=== PATIENT | male | born 1945 | race Caucasian/White ===

== ENCOUNTER 2017-02-02 23:50 | Emergency (ER) | payer MEDICARE, BC, OTHER ==
[~2017-02-02] VITALS: Ht 177.8 cm; Wt 104.5 kg
[~2017-02-02 23:50] MED LIST: ALTACE 5MG5 MG PO; ASPIRIN 81M81 MG/TA2 PO; COLACE 100100 MG/CAP PO; FISH OIL 1000MG1 CAP PO; MULTI VITAMINS1 TAB PO; TENORMIN 2525 MG/TAB PO; ZETIA 10MG TAB10 MG PO; ZOCOR 40MG40 MG PO
[2017-02-02 23:55] VITALS: TEMP 97.5
[2017-02-03 00:16] LABS: BASO % 0.5 % (0.0-2.0); EOS # 0.1 (0.0-0.7); EOS % 2.3 % (0-4.0); GRAN # 2.8 (1.4-6.5); GRAN % 47.5 % (42.2-75.2); HEMATOCRIT 40.2 % (42.0-52.0); HEMOGLOBIN 13.9 g/dl (13.5-18.0); LYMPH # 2.3 (1.2-3.4); LYMPH % 37.9 % (20.0-51.0); MEAN CELL VOLUME 92 fl (80.0-100.0); MEAN CORPUSCULAR HEMOGLOBIN 32 pg (27.0-31.0); MEAN CORPUSCULAR HGB CONC 35 g/dl (33.0-37.0); MEAN PLATELET VOLUME 9.8 fl (7.4-10.4); MONO # 0.7 (0.1-0.6); MONO % 11.5 % (1.7-9.3); PLATELET COUNT 214 K/mm3 (130-400); RED BLOOD COUNT 4.38 M/mm3 (4.20-5.60); REDCELL DISTRIBUTION WIDTH-CV 12.6 % (11.5-14.5)
[2017-02-03 00:25] LABS: ADJUSTED CALCIUM 8.7 mg/dL (8.4-10.2); ALANINE AMINOTRANSFERASE 31 U/L (21-72); ALBUMIN 4.2 gm/dL (3.5-5.0); ALKALINE PHOSPHATASE 61 U/L (50-136); ANION GAP 9 mmol/L (7-16); BILIRUBIN,TOTAL 0.7 mg/dL (0.0-1.0); BLOOD UREA NITROGEN 14 mg/dL (9-20); CALCIUM 8.9 mg/dL (8.4-10.2); CARBON DIOXIDE 26 mmol/L (22-30); CHLORIDE 102 mmol/L (98-107); GLUCOSE 103 mg/dL (74-106); LIPASE 197 U/L (23-300); POTASSIUM 4.2 mmol/L (3.4-5.0); SODIUM 137 mmol/L (137-145)
[2017-02-03 00:36] LABS: B-TYPE NATRIURETIC PEPTIDE 56 pg/mL (0-125)
[2017-02-03 00:45] LABS: TROPONIN-I < 0.012 ng/mL (0.000-0.034)
[2017-02-03] MEDS ORDERED: ROBAXIN 75750 MG/TAB PO (00:55)
[2017-02-03] MEDS ORDERED: ZETIA 10MG TAB10 MG PO (00:57)
[2017-02-03] MEDS ORDERED: OMEGA-3 1000 MG1 CAP PO (00:57)
[2017-02-03] MEDS ORDERED: TENORMIN 2525 MG/TAB PO (00:57)
[2017-02-03] MEDS ORDERED: ZOCOR 40MG40 MG PO (00:57)
[2017-02-03] MEDS ORDERED: MULTI VITAMINS1 TAB PO (00:58)
[2017-02-03] MEDS ORDERED: COZAAR100 MG PO (00:58)
[2017-02-03] MEDS ORDERED: ASPIRIN 81M81 MG/TA2 PO (00:58)
[2017-02-03 02:36] VITALS: BP 117/78; PULSE 54
== END 2017-02-03 02:37 | disposition home or self-care (01) ==
LOC: COL.ER 23:50
PROVIDERS: Emergency Medicine
DX: R07.9 Chest pain, unspecified (principal); I10 Essential (primary) hypertension; Z95.1 Presence of aortocoronary bypass graft; Z95.5 Presence of coronary angioplasty implant and graft; Z87.891 Personal history of nicotine dependence; Z79.82 Long term (current) use of aspirin

== ENCOUNTER → 2022-11-19 | Outpatient (CLI) | payer MEDICARE, OTHER ==
[~2022-11-19] MED LIST changes: +COZAAR100 MG PO; +OMEGA-3 1000 MG1 CAP PO; +ROBAXIN 75750 MG/TAB PO
== END ==
LOC: COL.RAD 10:47
DX: J34.9 Unspecified disorder of nose and nasal sinuses (principal)

== ENCOUNTER 2023-05-03 12:20 | Day surgery (SDC) | payer MEDICARE, OTHER ==
[2023-05-03] VITALS (7 sets, daily range): BP systolic 111–134; BP diastolic 56–70; PULSE 60–68; TEMP 97.5–97.7
[~2023-05-03] VITALS: Ht 177.8 cm; Wt 95.4 kg
[2023-05-03] MEDS ORDERED: PROTONIX 40MG T40 MG PO (13:07)
[2023-05-03] MEDS ORDERED: TENORMIN 2525 MG/TAB PO (13:09)
[2023-05-03] MEDS ORDERED: CHLOROTHIAZIDE PO (13:11)
[2023-05-03] MEDS ORDERED: IBUDONE5 PO (13:13)
[2023-05-03] MEDS ORDERED: FENTANYL 12MCG TD (13:17)
--- NOTE | 2023-05-03 18:08 | NUR ---
[id number]: PT TO RECOVERY BAY 2 FROM PACU S/P TURBT A&O, PLACED ON MONITOR, VSS ON RA RECEIVED REPORT AND ASSUMED CARE OF PT FROM CHERI RITTER SPOUSE/DTR AT BEDSIDE PROVIDED FOOD/FLUIDS, TOLERATING WELL SCANT BLOODY DRAINAGE AND MODERATE CLOT FROM URETHRA NOTED UPON ARRIVAL. INITIALLY PT UNABLE TO VOID, BUT THEN AMBULATED TWICE TO BR AND DISLODGED A CLOT FROM [facility]THRA AND ABLE TO EMPTY BLADDER CONFIRMED WITH BLADDER SCAN. PT ENCOURAGED TO HYDRATE WELL AND S/S TO RTC REVIEWED INCLUDING INABLILITY TO VOID - PT/FAMILY VERBALIZED UNDERSTANDING PT HAS REMAINED A&O, NAD, VSS ON RA, TOLERATING PO, IS WITHOUT SIGNIFICANT COMPLAINT, WITH STEADY GAIT WITH WALKER THRU OUT STAY IV D/C'D. D/C INSTRUCTIONS, ANY FOLLOW UP REVIEWED AND HANDED TO PT. ALL QUESTIONS AND CONCERNS ADDRESSED TO PT SATISFACTION. TAKEN TO EXIT VIA W/C WITH ALL BELONGINGS AND PAPERWORK IN HAND, ASSISTED INTO PASSENGER SEAT OF POV. DTR TO DRIVE HOME.
== END 2023-05-03 17:30 | disposition home or self-care (01) ==
LOC: SDCO 12:20
DX: C79.11 Secondary malignant neoplasm of bladder (principal); C80.1 Malignant (primary) neoplasm, unspecified; I10 Essential (primary) hypertension; E66.9 Obesity, unspecified; Z68.29 Body mass index [BMI] 29.0-29.9, adult; Z95.1 Presence of aortocoronary bypass graft; Z95.5 Presence of coronary angioplasty implant and graft; Z79.899 Other long term (current) drug therapy
CPT/HCPCS: J0690; J1100; J2371; J2405; J2704; J3010; J7120

== ENCOUNTER 2023-05-07 04:07 | Emergency (ER) | payer MEDICARE, OTHER ==
[~2023-05-07] VITALS: Ht 177.8 cm; Wt 95.5 kg
[~2023-05-07 04:07] MED LIST changes: +CHLOROTHIAZIDE PO; +FENTANYL 12MCG TD; +IBUDONE5 PO; +PROTONIX 40MG T40 MG PO
[2023-05-07 06:32] VITALS: BP 159/87; PULSE 71; TEMP 98.1
[2023-05-07] MEDS ORDERED: MS CONTIN 330 MG/TAB PO (06:37)
[2023-05-08] MEDS ORDERED: ZOFRAN ODT4 MG PO (19:43)
== END 2023-05-07 06:55 | disposition home or self-care (01) ==
LOC: COL.ER 04:07
DX: C41.9 Malignant neoplasm of bone and articular cartilage, unspecified (principal)

== ENCOUNTER 2023-05-08 17:23 | Emergency (ER) | payer MEDICARE, OTHER ==
[~2023-05-08] VITALS: Ht 177.8 cm; Wt 95.5 kg
[~2023-05-08 17:23] MED LIST changes: +MS CONTIN 330 MG/TAB PO
[2023-05-08 17:49] LABS: BASO % 0.3 % (0.0-2.0); EOS # 0.1 K/mm3 (0.0-0.7); EOS % 0.7 % (0.0-4.0); GRAN # 7.9 K/mm3 (1.4-6.5); GRAN % 73.6 % (42.2-75.2); HEMATOCRIT 41.1 % (42.0-52.0); HEMOGLOBIN 13.9 g/dl (13.5-18.0); LYMPH # 1.5 K/mm3 (1.2-3.4); LYMPH % 13.9 % (20.0-51.0); MEAN CELL VOLUME 93 fl (80.0-100.0); MEAN CORPUSCULAR HEMOGLOBIN 31 pg (27-31); MEAN CORPUSCULAR HGB CONC 34 g/dl (33.0-37.0); MEAN PLATELET VOLUME 10.1 fl (7.4-10.4); MONO # 1.2 K/mm3 (0.1-0.6); MONO % 10.9 % (1.7-9.3); PLATELET COUNT 184 K/mm3 (130-400); RED BLOOD COUNT 4.43 M/mm3 (4.20-5.60)
[2023-05-08 18:03] LABS: ALBUMIN 3.6 gm/dL (3.4-4.8); BILIRUBIN,TOTAL 1.4 mg/dL (0.2-1.2); C-REACTIVE PROTEIN 11.97 mg/dL (0.00-0.50); CALCIUM 9.4 mg/dL (8.4-10.2); CREATININE, serum 0.85 mg/dL (0.72-1.25); POTASSIUM 4.4 mmol/L (3.5-4.5)
[2023-05-08] MEDS ORDERED: ZOFRAN ODT4 MG PO (19:43)
[2023-05-08 20:02] VITALS: BP 124/61; PULSE 80
--- NOTE | 2023-05-09 11:36 | NUR ---
Scarrer received consult from the ED for patient that visited on 05/07/23 and 05/08/23. Patient returned home and it was determined he may need some in home supports. JUSTIN contacted patient who advised he was doing okay but is having some difficulty getting around. Patient stated he came in to the ED twice for uncontrolled pain and also advised he had a recent cancer diagnosis. Patient has a cane and walker available at home. Patient lives with his , Yael (ph#[phone]) and their daughter, Mp. Patient also has a daughter, Kath who lives in [place]. Patient did not want to set up Home Health at this time as he has a couple follows ups this week and wants to wait to find out more about his plan of care. Patient has a follow up with Oncology on Tuesday and a follow up with Urology on . Patient sees Dr. Bull for primary care and would like to be contacted by [facility] to set up a follow up with him. JUSTIN contacted Cherry at [facility] and provided the above update. Cherry will have their office reach out to patient to schedule a follow up and offer support.
== END 2023-05-08 20:02 | disposition home or self-care (01) ==
LOC: COL.ER 17:23
PROVIDERS: Emergency Medicine
DX: C79.51 Secondary malignant neoplasm of bone (principal); R11.2 Nausea with vomiting, unspecified; Z87.891 Personal history of nicotine dependence
CPT/HCPCS: J2405; J2550; J7030

== ENCOUNTER 2023-07-14 15:47 | Inpatient (IN) | payer MEDICARE, OTHER ==
[~2023-07-14] VITALS: Ht 177.8 cm; Wt 87.4 kg
[~2023-07-14 15:47] MED LIST changes: +ASPIRIN E.C. 8181 MG PO; +FENTANYL 25 MCG TD; +HCTZ12.5TAB PO; +MIRALAX PA17 GM/Dose PO; +NEURONTIN300 MG/CAP PO; +NORCO 325 MG-51 TAB PO; +STOOL SOFTENER100 M2 PO; +ZOFRAN 4MG T4 MG/TAB PO; +ZOFRAN ODT4 MG PO
[2023-07-14] MEDS ORDERED: NS 1,000 ML IV ONE ×2 (16:00→18:15)
[2023-07-14 16:15] LABS: HEMATOCRIT 37.2 % (42.0-52.0); HEMOGLOBIN 12.7 g/dl (13.5-18.0); MEAN CELL VOLUME 93 fl (80.0-100.0); MEAN CORPUSCULAR HEMOGLOBIN 32 pg (27-31); MEAN CORPUSCULAR HGB CONC 34 g/dl (33.0-37.0); MEAN PLATELET VOLUME 9.4 fl (7.4-10.4); PLATELET COUNT 163 K/mm3 (130-400); RED BLOOD COUNT 3.99 M/mm3 (4.20-5.60); REDCELL DISTRIBUTION WIDTH-CV 15.7 % (11.5-14.5)
[2023-07-14 16:19] LABS: INR 1.4 (0.8-3.0); PROTHROMBIN TIME 15.4 SECONDS (9.7-12.8)
[2023-07-14 16:29] LABS: ALBUMIN 2.7 gm/dL (3.4-4.8); C-REACTIVE PROTEIN 22.38 mg/dL (0.00-0.50); CALCIUM 8.7 mg/dL (8.4-10.2); CREATININE, serum 0.74 mg/dL (0.72-1.25); POTASSIUM 3.8 mmol/L (3.5-4.5); TOTAL PROTEIN 6.4 gm/dL (6.2-8.1)
[2023-07-14 16:35] LABS: TROPONIN-I 0.023 ng/mL (0.00-0.033)
[2023-07-14] MEDS ORDERED: Acetaminophen 500 MG TAB PO ONE (17:00)
[2023-07-14 17:04] LABS: COLLECTION METHOD CLEAN CATCH
[2023-07-14 17:06] LABS: BAND 4 % (0-10); LYMPHOCYTE 4 % (20.0-51.0); NEUTROPHILS 90 % (42.0-75.2); PLATELET ESTIMATE NORMAL (NORMAL)
[2023-07-14 17:13] LABS: URINE APPEARANCE Clear (CLEAR/HAZY); URINE BLOOD Negative (NEGATIVE); URINE COLOR Yellow (YELLOW); URINE GLUCOSE 1+ (NEGATIVE); URINE KETONE TRACE (NEGATIVE); URINE NITRATE Negative (NEGATIVE); URINE PROTEIN(semi-quant) TRACE (NEGATIVE)
[2023-07-14] MEDS ORDERED: Iohexol 300 - 100 ML VIAL IV ONE (17:18)
[2023-07-14] MEDS ORDERED: NS 100 ML IV SCH (17:18)
[2023-07-14 17:39] LABS: URINE RBC 0-2 /hpf (0-2)
[2023-07-14 17:40] LABS: SQUAMOUS EPITHELIAL 0-2 /hpf (0-10)
[2023-07-14 17:41] LABS: MUCOUS Present (NOT PRESENT); URINE BACTERIA None Seen /hpf (NONE SEEN)
[2023-07-14] MEDS ORDERED: methylPREDNISolone Sod Succ 125 MG/2 ML VIAL IV ONE (18:15)
[2023-07-14 20:50] VITALS: BP 117/73; PULSE 109; TEMP 98.2
[2023-07-14 21:00] VITALS: BP_SYST 117
[2023-07-14] MEDS ORDERED: Ondansetron 4 MG/2 ML VIAL IV PRN (21:30)
[2023-07-14] MEDS ORDERED: Docusate Sodium 100 MG CAP PO PRN (21:30)
[2023-07-14] MEDS ORDERED: Acetaminophen 325 MG TAB PO PRN (21:30)
[2023-07-14] MEDS ORDERED: Atenolol 25 MG TAB PO SCH (22:04)
[2023-07-14] MEDS ORDERED: Gabapentin 300 MG CAP PO SCH (22:05)
[2023-07-14] MEDS ORDERED: Simvastatin 40 MG **** subs to Atorvastatin 20 MG PO SCH (22:05)
--- NOTE | 2023-07-14 23:06 | NUR ---
patient arrived from ED at 2039, alert and oriented x4, transfer x1 assist with steady gait and some weakness to bed. pt denies chest pain and shortness of breath at this time. IV in LW and RAC are patent, sites are clean dry and intact. slight blancheable redness on heels, no other remarkable skin findings, mild nonpitting edema in BLE, pt wearing own compression socks. pt oriented to room. pt has no further needs, questions, or concerns. fall precautions in place, call light within reach. will continue to monitor.
[2023-07-14] MEDS ORDERED: guaiFENesin ER 600 MG **** subs to guaiFENesin 200 MG PO SCH (23:17)
[2023-07-14] MEDS ORDERED: Albuterol 0.083% Neb Soln 2.5 MG/3 ML UD IH PRN (23:30)
[2023-07-15] VITALS (13 sets, daily range): BP systolic 93–129; BP diastolic 57–75; PULSE 81–112; TEMP 97.8–98.4
[2023-07-15] MEDS ORDERED: guaiFENesin 200 MG TAB PO SCH
[2023-07-15 06:37] LABS: CALCIUM 8.4 mg/dL (8.4-10.2); CREATININE, serum 0.64 mg/dL (0.72-1.25); POTASSIUM 3.7 mmol/L (3.5-4.5)
[2023-07-15] MEDS ORDERED: Albuterol 0.083% Neb Soln 2.5 MG/3 ML UD IH SCH (07:00)
[2023-07-15] MEDS ORDERED: Polyethylene Glycol 3350 17 GM PDS PO SCH (09:00)
[2023-07-15] MEDS ORDERED: Losartan 50 MG TAB PO SCH (09:00)
[2023-07-15] MEDS ORDERED: Docusate Sodium 100 MG CAP PO SCH (09:00)
--- NOTE | 2023-07-15 09:00 | NUR ---
PT RESTING IN BED UPON ENTERING, DAUGHTER AT BEDSIDE. PT DENIES PAIN AT THIS TIME BUT DAUGHTER STATES THAT DUE TO BONE CANCER THEY LIKE TO "STAY ON TOP OF THE PAIN" AND IS REQUESTING PRN PAIN MED. PT AGREEING ALTHOUGH DENYING PAIN. PT REPORTS A BOWEL MOVEMENT 07/14 AND DAUGHTER STATING THAT PT SHOULD NOT TAKE MIRALAX, PT REFUSING MIRALAX AND TAKING SCHEDULED COLACE. PT HAS A STAGE 2 PRESSURE INJURY TO COCCYX. PTS CLEANED, BARRIER CREAM AND MEPILEX APPLIED. ZOSYN STARTED IN LEFT WRIST AT 25 MLS/HR. RIGHT AC FLUSHES WELL. PT ON 1.5L NASAL CANNULA AND TOLERATING WELL, DENIES SHORTNESS OF BREATH AT THIS TIME. AFTER MEDS GIVEN PT BECOMES TEARFUL STATING "ILL NEVER SEE MY GRANDKIDS AGAIN". PT REASSURED BY THIS NURSE AND DAUGHTER AT BEDSIDE. PT DENIES NEEDS AT THIS TIME. BED IN LOWEST POSITION, CALL LIGHT IN REACH, BED ALARM ON
--- NOTE | 2023-07-15 10:33 | NUR ---
Initial visit; Patient and his daughter were very nice people who both appreciated Ob Gyn offering her time to listen to patient's story and offering encouragement, kindness and prayer. Ob Gyn wished them both a good [place]. They did the same.
--- NOTE | 2023-07-15 12:34 | NUR ---
Venue Manager met with patient to discuss discharge planning. Patient lives in [place] with his , Phylicia (ph#[phone]) and sees Dr. Galvez at [facility] for primary care. Patient obtains medications from [facility] with no difficulties. Patient has a cane and walker at home if he needs one. Patient is normally independent with ADLS and was driving up until recently. Patient's also does not drive so they rely on their daughters for assistance getting to appointments. Patient stated his and daughters are DPOA-HC. Patient plans to return home at time of discharge. Discharge Plan; Home
--- NOTE | 2023-07-15 14:30 | NUR ---
PT CALLED THIS NURSE INTO ROOM AND REPORTS DISCOMFORT ON HIS PENIS. UPON ASSESSING THIS NURSE NOTED A WHITE PATCHY AREA ON HEAD OF PTS PENIS. PT STATES "I RUBBED IT ON THE TOILET SEAT SCOOTING AROUND" WHEN ASKING WHEN PT STATE ABOUT A WEEK AGO AND THAT HES BENE USING A MEDICATION THAT STARTS WITH AN A. THIS NURSE CHECKED PTS MED CLAIM HISTORY AND SAW THAT PT WAS PRESCRIBED ARISTOCORT FOR THIS ISSUED. DR MOORE NOTIFIED AND MED WAS ADDED TO THE MED REC PER HER REQUEST TO "LOOK AT IT". NO FURHTER ORDERS AT THIS TIME
[2023-07-15] MEDS ORDERED: TRIAMC 0.1 454 TOP (14:36)
--- NOTE | 2023-07-15 15:05 | NUR ---
UPON ENTERING PT REPORTS "CHEST TIGHTNESS FOR ABOUT AN HOUR", DESCRIBING IT "SOMETHING SITTING ON MY CHEST". PT STATES THAT THIS STARTED AFTER EATING. VITALS TAKEN AND DR MOORE CALLED. EKG AND TROPONIN ORDERED. PT ON 1.5L NASAL CANNULA AND DENIES BEING SHORT OF BREATH AT THIS TIME.
--- NOTE | 2023-07-15 17:31 | NUR ---
DR MOORE INFORMED BY THIS RN THAT PATIENT TROPONIN IS CRITICAL AT 0.051, YESTERDAY IT WAS 0.023. NO ORDERS GIVEN AT THIS TIME.
--- NOTE | 2023-07-15 17:37 | NUR ---
DR MOORE CALLED AND ASKED ABOUT PTS PLAN DUE TO CRITICAL HIGH TROPONIN. PROVIDER STATES "PT IS CURRENTLY NOT HAVING CHEST PAIN. I WILL ORDER A REPEAT TROPONIN AND IF ITS HIGH AGAIN I WILL ORDERA HEPARIN DRIP". THIS NURSE VERBALIZED UNDERSTANDING AND A REPEAT TROPONIN IS SCHEDULED FOR 1900.
[2023-07-15] MEDS ORDERED: Aspirin 325 MG TAB PO ONE (17:45)
[2023-07-15] MEDS ORDERED: Heparin 5,000 UNITS/ML 1 ML VIAL IV ONE (20:15)
[2023-07-15] MEDS ORDERED: LR 500 ML IV ONE (20:15)
[2023-07-15] MEDS ORDERED: Heparin/D5W 250 ML IV SCH (20:15)
[2023-07-15] MEDS ORDERED: Heparin 5,000 UNITS/ML 1 ML VIAL IV PRN (20:15)
[2023-07-15] MEDS ORDERED: Atorvastatin 20 MG TAB PO SCH (21:00)
[2023-07-15] MEDS ORDERED: Ezetimibe 10 MG TAB PO SCH (21:00)
[2023-07-15 21:29] LABS: PARTIAL THROMBOPLASTIN TIME 27.1 SECONDS (26.0-37.0)
[2023-07-16] VITALS (13 sets, daily range): BP systolic 92–114; BP diastolic 56–67; PULSE 88–113; TEMP 97.4–98.5
[2023-07-16 04:44] LABS: MEAN CELL VOLUME 90 fl (80.0-100.0); MEAN CORPUSCULAR HGB CONC 35 g/dl (33.0-37.0); MEAN PLATELET VOLUME 9.2 fl (7.4-10.4); PLATELET COUNT 162 K/mm3 (130-400); RED BLOOD COUNT 2.98 M/mm3 (4.20-5.60); REDCELL DISTRIBUTION WIDTH-CV 15.7 % (11.5-14.5)
[2023-07-16 04:53] LABS: HEMATOCRIT 26.8 % (42.0-52.0); MEAN CORPUSCULAR HEMOGLOBIN 32 pg (27-31)
[2023-07-16 04:55] LABS: HEMOGLOBIN 9.4 g/dl (13.5-18.0)
[2023-07-16 05:01] LABS: CREATININE, serum 0.65 mg/dL (0.72-1.25); MAGNESIUM 1.8 mg/dL (1.6-2.6); POTASSIUM 3.6 mmol/L (3.5-4.5)
[2023-07-16 05:10] LABS: TROPONIN-I 0.062 ng/mL (0.00-0.033)
--- NOTE | 2023-07-16 05:15 | NUR ---
ASSESSMENT COMPLETE FOR CLOTHES IRONER. PT DENIED GENERAL PAIN, CHEST PAIN, PALPITATIONS, SOB, N,V,D OR DIZZINESS. PT HAD 2 ELEVATED TROPONINS THIS SHIFT. THE FIRST ELEVATED TROPONIN CALLED THIS SHIFT WAS 0.061. HOSPITALIST CALLED. HEPARIN DRIP ORDERED AND STARTED. THE SECOND ELEVATED TROPONIN CALLED THIS SHIFT WAS 0.062. HOSPITALIST CALLED. NO NEW ORDERS AT THIS TIME. HgB DELTA CHECK CALLED (12.7 DOWN TO 9.4). HOSPITALIST CALLED. NO NEW ORDERS. FALL PRECATIONS IN PLACE. BED ALARM ON. CALL LIGHT WITHIN REACH.
--- NOTE | 2023-07-16 07:50 | NUR ---
CARDIOLOGY CONSULT CALLED TO DR AGUAYO
--- NOTE | 2023-07-16 09:45 | NUR ---
PT RESTING IN BED. ASSESSMENT DONE. PT REPORTS NOT HAVING A BOWEL MOVEMENT SINCE ADMISSION. THIS NURSE NOTIFIED PT ON ON THE MORNING OF 07/15 PT AND DAUGHTER REFUSED MIRALAX SINCE PT HAS A LOOSE BM ON 07/14. PT VERBALIZED UNDERSTANDING AND WAS GIVEN SCHEDULED COLACE AND MIRALAX. PT ON 1L NASAL CANNULA AND DENIES SHORTNESS OF BREATH AT THIS TIME. PT DENIES CHEST PAIN AND HEPARIN DRIP RUNNING AT 9MLS/HR PER ORDER. PT DOES REPORT CHRONIC HIP PAIN AND GIVNE PRN NORCO. PT HAS A STAGE 2 PRESSURE INJURY TO COCCYX. PT CLEANED, BARRIER CREAM AND MEPILEX APPLIED. PT REPOSITIONED ON RIGHT SIDE. PT DENIES NEEDS AT THIS TIME. BED IN LOWEST POSITION, CALL LIGHT IN REACH, BED ALARM ON
--- NOTE | 2023-07-16 12:03 | NUR ---
PTS HEPXA 0.38 WHICH IS THERAPEUTIC. NO CHANGE TO RATE MADE AT THIS TIME AND HEPARIN IS RUNNING AT 9 MLS/HR. PT DENIES NEEDS AT THIS TIME. HEPXA RECHECK WILL BE ORDERED FOR 0. PT AND FAMILY UPDATED ON THIS AND ALL VERBALIZED UNDERSTANDING. PTS FAMILY ASKING ABOUT WHEN THE LAST TIME PT GOT PRN NORCO AND UPDATED BY THIS NURSE. PTS FAMILY WANTING PRN EVERY 6 HOURS AND THIS NURSE EDUCATING WHEN PT CAN GET IT NEXT AND THAT PT OUR FAMILY SHOULD CALL SINCE MED ISNT SCHEDULED.
--- NOTE | 2023-07-16 12:11 | NUR ---
Data: Patient accepted Wealth Management Consultant visit during Wealth Management Consultant rounds. Assessment: Patient is grieving the loss of his Son whol earlier this year. Patient's illness is complicating his grief. Plan of Care: Wealth Management Consultant provided supportive listening. Patient's Daughter and Grandson arrived. Wealth Management Consultant provided prayer as the family held hands with one another.
[2023-07-16] MEDS ORDERED: Clopidogrel 75 MG TAB PO SCH (16:55)
--- NOTE | 2023-07-16 17:00 | NUR ---
HEPXA 0.31 WHICH IS THERAPEUTIC, RECHECK DUE IN THE MORNING. HEPARIN RESTARTED AT 9MLS/HR PER ORDER
--- NOTE | 2023-07-16 20:30 | NUR ---
Patient resting in bed. Denies any pain or needs at this time. Assessment complete. IV in left wrist and right AC infusing with no complications. Call light and personal items in reach. Bed in low position and bed alarm on.
[2023-07-17] VITALS (12 sets, daily range): BP systolic 102–120; BP diastolic 59–77; PULSE 85–109; TEMP 97.4–100.8
--- NOTE | 2023-07-17 05:45 | NUR ---
Patient resting in bed. No signs of pain or distress at this time. Call light and personal items in reach. Bed in low position and bed alarm on. Patient had an episode early this morning where he has some mucous he was struggling to get up and was SOB. Sat patient on edge of bed and had him cough and spit out mucous. Patient stated that it helped and he feels better. Oxygen reading in upper 80s, bumped oxygen up to 4L nasal cannula and stating 92%.
[2023-07-17 07:35] LABS: HEMOGLOBIN 10.4 g/dl (13.5-18.0); MEAN CELL VOLUME 90 fl (80.0-100.0); MEAN CORPUSCULAR HEMOGLOBIN 31 pg (27-31); MEAN CORPUSCULAR HGB CONC 34 g/dl (33.0-37.0); MEAN PLATELET VOLUME 9.6 fl (7.4-10.4); PLATELET COUNT 203 K/mm3 (130-400); RED BLOOD COUNT 3.35 M/mm3 (4.20-5.60); REDCELL DISTRIBUTION WIDTH-CV 15.9 % (11.5-14.5)
[2023-07-17 07:37] LABS: HEMATOCRIT 30.3 % (42.0-52.0)
[2023-07-17 07:52] LABS: CALCIUM 8.3 mg/dL (8.4-10.2); CREATININE, serum 0.61 mg/dL (0.72-1.25); MAGNESIUM 1.6 mg/dL (1.6-2.6); POTASSIUM 4.4 mmol/L (3.5-4.5)
--- NOTE | 2023-07-17 09:41 | NUR ---
Patient is resting in bed, at shiftchange pt was raised to 7L sat 90-92%/, right now at the same rate. Telemetry in place, heg gtt at 900unitis/hr. Getting Zosyn per orders. States pain 3/10 in his lower back. Assessment completed, meds provided, no further needs at this time. Call light within reach.
[2023-07-17] MEDS ORDERED: dexAMETHasone 4 MG/ML VIAL IV SCH (11:15)
[2023-07-17] MEDS ORDERED: dexAMETHasone 10 MG/ML VIAL IV SCH (11:30)
[2023-07-17] MEDS ORDERED: Doxycycline Hyclate 100 MG in NS 150 ML IV SCH (11:45)
--- NOTE | 2023-07-17 13:49 | NUR ---
Data: RN called the Civil Rights Investigator on-call because Patient requested a Civil Rights Investigator. Assessment: Patient physical condition appears to be a decline from yesterday; especially because of the O2 mask. A number of Family members were present, including . Patient does not remember asking for Civil Rights Investigator. Family offered to leave theroom so that Patient could speak with Civil Rights Investigator alone. Patient wanted Family to stay. Plan of Care: Civil Rights Investigator read the Magnificat and prayed for healing and a joyful [place] despite the hospital stay. Patient and Daughter held Civil Rights Investigator's hands during prayer. Patient and Family thanked Civil Rights Investigator.
[2023-07-17] MEDS ORDERED: Formoterol 20 MCG,Budesonide 0.5 MG IH SCH (19:00)
[2023-07-18] VITALS (13 sets, daily range): BP systolic 103–135; BP diastolic 53–78; PULSE 67–90; TEMP 97.5–97.9
--- NOTE | 2023-07-18 05:15 | NUR ---
ASSESSMENT FOR POWER AND RECOVERY SUPERINTENDENT COMPLETE. PT HAD AN EPISODE OF CONFUSION DURING SHIFT CHANGE/REPORT AT THE BEGINNING OF THE SHIFT, WHERE HE WAS PULLING OFF HIS TELE AND OXYMASK. PT RECOVERED QUICKLY AND STATED HE HAD JUST WOKEN UP AND DIDN'T KNOW WHERE HE WAS FOR A FEW MINUTES. PT A&O X 4. PT DENIED GENERAL PAIN, CHEST PAIN, PALPITATIONS, SOB, N,V,D OR DIZZINESS. HEPARIN DRIP STOPPED PER HOSPITALIST ORDERS. PT EXPRESSED NO ADDITIONAL NEEDS AT THIS TIME. FALL PRECAUTIONS IN PLACE. BED ALARM ON. CALL LIGHT WITHIN REACH.
--- NOTE | 2023-07-18 07:18 | NUR ---
88% ON 8 LPM OXYMASK INCREASED TO 12LPM 90%. RN NOTIFIED
--- NOTE | 2023-07-18 12:08 | NUR ---
D: Scale Tank Operator was called to room by nurse. Pt was resting in bed with family nearby A: Pt has been in two different branches of the . Pt and have been for over 50 years. Pt asked for prayer. Scale Tank Operator spoke with pt and family for a little bit and then prayed with all of them. Family and pt appreciated the prayer and encouragement. P: Scale Tank Operator informed family and pt that if they needed anything to let their nurse know. Scale Tank Operator will follow up as needed.
[2023-07-18] MEDS ORDERED: oxyCODONE 5 MG TAB PO ONE (21:45)
[2023-07-19] VITALS (10 sets, daily range): BP systolic 100–132; BP diastolic 35–77; PULSE 79–95; TEMP 97.5–98
[2023-07-19 06:46] LABS: MEAN CELL VOLUME 92 fl (80.0-100.0); MEAN CORPUSCULAR HEMOGLOBIN 31 pg (27-31); MEAN CORPUSCULAR HGB CONC 34 g/dl (33.0-37.0); MEAN PLATELET VOLUME 10.1 fl (7.4-10.4); PLATELET COUNT 238 K/mm3 (130-400); RED BLOOD COUNT 3.21 M/mm3 (4.20-5.60)
[2023-07-19 06:53] LABS: HEMATOCRIT 29.6 % (42.0-52.0)
--- NOTE | 2023-07-19 08:21 | NUR ---
PATIENT ON AIRVO2 HIGH FLOW CANNULA, 28LPM OXYGEN, GIVES US FIO2 OF 78% WITH 40LPM OF FLOW. RAUL GOLDEN
--- NOTE | 2023-07-19 10:00 | NUR ---
Patient is resting in bed, family at the bedside. Alert and oriented x 4, using AIRVO 40L 75%. States he has to get use to its noise. Assessment completed, meds provided. Eating well. No further needs at this time. Call light within reach.
--- NOTE | 2023-07-19 12:40 | NUR ---
Had a Palliative Meeting with pt- Lang, Phylicia, daughters Kath and Mp. Pt was a Full Code and pt requested to be made DNR. Dr. Strong reviewed case with pt during rounding. 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 Currently on 28L per AirVo. Pt had been as high as 40 L. Options for care were discussed including Home Hospice, Hospice at SNF, [facility]. Per family request a referral was sent to [facility] for review. Pt agreed that this is what he wanted. "It has been a great comfort to have the chaplins visiting." "I am ready and things are good with the man upstairs."
[2023-07-19] MEDS ORDERED: Albuterol/Ipratropium 3 MG-0.5 MG/3 ML Neb Soln IH SCH (14:00)
--- NOTE | 2023-07-19 14:49 | NUR ---
PATIENET ON AIRVO2, temp-37, 40 lpm, 65% FIO2, SPO2 95%, RAUL WEL
--- NOTE | 2023-07-19 16:52 | NUR ---
stucco worker met with patient, spouse, and daughters to discuss hospice care. Patient and family wish for a transfer to [facility]. Worker gave a referral to [facility] and patient was accepted on 07/20/23.
--- NOTE | 2023-07-19 17:01 | NUR ---
social worker contacted patient's daughter, Kath and advised of acceptance to [facility] on 07/20/23. Will plan for 11:00 transfer on 07/20/23.
--- NOTE | 2023-07-19 21:00 | NUR ---
Paitent resting in bed. Denies any pain or needs at this time. Assessment complete. IV in right AC flushes easily with no complicaions. Call light and personal items in reach. Bed in low position and bed alarm on.
[2023-07-20 00:31] VITALS: BP 114/59; PULSE 86; TEMP 97.9
[2023-07-20 01:00] VITALS: BP_SYST 125
--- NOTE | 2023-07-20 01:50 | NUR ---
Patient experienced an episode of confusion and removed his IV, took off tele, and removed his airvo. Reoriented patient and patient feeling much better.
[2023-07-20 04:16] VITALS: BP 125/60; PULSE 75; TEMP 98.7
[2023-07-20 05:29] VITALS: BP_SYST 125
--- NOTE | 2023-07-20 06:00 | NUR ---
Patient resting in bed. Denies any pain or needs at this time. Patient changed and cleaned up. Call light and personal items in reach. Bed in low position and bed. alarm on.
[2023-07-20 07:36] VITALS: BP 124/57; PULSE 71; TEMP 97.9
--- NOTE | 2023-07-20 08:09 | NUR ---
TURNED DOWN O2 LITER FLOW FROM 30 TO 25 LPM AND FIO2 TO 60 FROM 65% STILL SPO2 92%.
[2023-07-20] MEDS ORDERED: SYSTANE 0.4%-0.1 SOL OU (08:40)
[2023-07-20] MEDS ORDERED: TRANSDERM-0.5 MG/21 TD (08:40)
[2023-07-20] MEDS ORDERED: ROXANOL 20MG20 MG/ML SL (08:40)
[2023-07-20] MEDS ORDERED: ATIVAN 1MG T1 MG/TAB PO (08:40)
[2023-07-20] MEDS ORDERED: DULCOLAX S10 MG/SUPP RC (08:40)
[2023-07-20 09:00] VITALS: BP_SYST 124
--- NOTE | 2023-07-20 09:59 | NUR ---
table worker attended clinical rounding and patient will discharge this date. Sulema accept patient to the [facility] this date. Worker arranged for [facility] to transport patient today at 11:00. Worker met with patient and two daughters and advised of the above. They are agreeable to transfer. Worker collaborated with Veneer Cutter and nurse regarding discharge. Discharge plan: [facility] today at 11:00 vial [facility].
--- NOTE | 2023-07-20 10:12 | NUR ---
Patient is reting in bed, daughter at the bedside, alert and oriented, sentimental about his situation. Aware of going to [facility] today. Assessment completed, no furher needs at this time. Call light within reach.
--- NOTE | 2023-07-20 11:33 | NUR ---
Patient was picked up by EMS, report was given to Vicki in [facility]. Telemetry was discontinued.
--- NOTE | 2023-07-22 09:35 | NUR ---
drawer hardware worker contacted the [facility] office to provide information due to patient's request and filing for VA covered care due to Agent Cavalier issues during his time of service. Worker advised that patient transferred to [facility] on 07/20. The office advised that they do not need discharge information from the hospital.
== END 2023-07-20 11:30 | disposition hospice, home (50) | DRG 180 ==
LOC: COL.ER 15:47 → MEDICAL 19:09
PROVIDERS: Emergency Medicine; Nurse Practitioner Primary Care; ADMIT Internal Medicine
PROC: 5A0945A Assistance with Respiratory Ventilation, 24-96 Consecutive Hours, High Flow/Velocity Cannula (ICD-10-PCS; principal; 2023-07-19)
DX: C34.90 Malignant neoplasm of unspecified part of unspecified bronchus or lung (principal); E43 Unspecified severe protein-calorie malnutrition; J18.9 Pneumonia, unspecified organism; J96.01 Acute respiratory failure with hypoxia; C79.51 Secondary malignant neoplasm of bone; D84.9 Immunodeficiency, unspecified; J90 Pleural effusion, not elsewhere classified; Z66 Do not resuscitate; Z51.5 Encounter for palliative care; I10 Essential (primary) hypertension; I25.10 Atherosclerotic heart disease of native coronary artery without angina pectoris; E78.5 Hyperlipidemia, unspecified; Z20.822 Contact with and (suspected) exposure to COVID-19; G89.29 Other chronic pain; K21.9 Gastro-esophageal reflux disease without esophagitis; Z95.5 Presence of coronary angioplasty implant and graft; Z95.1 Presence of aortocoronary bypass graft; Z88.6 Allergy status to analgesic agent; Z87.891 Personal history of nicotine dependence; Z79.82 Long term (current) use of aspirin; Z79.899 Other long term (current) drug therapy; Z23 Encounter for immunization; Z68.26 Body mass index [BMI] 26.0-26.9, adult
CPT/HCPCS: J1100; J1644; J1650; J2543; J2930; J7030; J7120; Q9967